=== PATIENT | female | born 1990 | race Caucasian/White ===

== ENCOUNTER 2023-02-16 14:23 | Inpatient (IN) | payer BC ==
[~2023-02-16] VITALS: Ht 165.1 cm; Wt 92.3 kg
[~2023-02-16 14:23] MED LIST: MOTRIN 600600 MG/TAB PO; PERCOCET 325 MG1 TA2 PO; PRENATAL1 TA1 PO
[2023-02-18] VITALS (29 sets, daily range): BP systolic 121–160; BP diastolic 73–101; PULSE 68–126; TEMP 98.1–98.2
--- NOTE | 2023-02-18 06:15 | NUR ---
PT AMBULATORY TO UNIT WITH SIGNIFICANT OTHER, ORIENTED TO ROOM AND PLAN OF CARE. PT REPORTS FEELING IRREGULAR CTX "NOT WITHIN THE LAST DAY", NO LOF, NO VAGINAL BLEEDING/SPOTTING, AND POSITIVE MOVEMENT. REPORTS BEING SLIGHTLY ANXIOUS DUE TO HER LAST DELIVERY. PT VS STABLE, EFM CAT 1.
[2023-02-18] MEDS ORDERED: PRENATAL TABLET PO (06:37)
[2023-02-18 07:45] LABS: BASO % 0.3 % (0.0-2.0); EOS % 0.4 % (0.0-4.0); GRAN # 4.7 K/mm3 (1.4-6.5); GRAN % 65.8 % (42.2-75.2); HEMATOCRIT 37.8 % (37.0-47.0); HEMOGLOBIN 13.3 g/dl (12.5-16.0); LYMPH # 1.8 K/mm3 (1.2-3.4); LYMPH % 25.1 % (20.0-51.0); MEAN CELL VOLUME 88 fl (80.0-100.0); MEAN CORPUSCULAR HEMOGLOBIN 31 pg (27-31); MEAN CORPUSCULAR HGB CONC 35 g/dl (33.0-37.0); MEAN PLATELET VOLUME 11.1 fl (7.4-10.4); MONO # 0.6 K/mm3 (0.1-0.6); MONO % 8.1 % (1.7-9.3); PLATELET COUNT 172 K/mm3 (130-400); RED BLOOD COUNT 4.31 M/mm3 (4.10-5.30); REDCELL DISTRIBUTION WIDTH-CV 12.2 % (11.5-14.5)
--- NOTE | 2023-02-18 09:17 | NUR ---
0910 BAIRON ALEJANDRE AT BEDSIDE. PT SITTING UPRIGHT, PULSE OX IN PLACE, FLUID BOLUS INFUSING, EFM TRACING CAT 1. 0917 TEST DOSE PER [place], PT TOLERATED WELL. VS STABLE, EFM CAT 1. PT RETURNED TO LL POSITION, TOLERATED WELL.
--- NOTE | 2023-02-18 12:20 | NUR ---
1155 SVE 10/100/+2 PER PCR.MANSHE. PT REPORTS FEELING LOWER PRESSURE WITH CTX, SMALL BLOODY SHOW. [address] FRAIRE 1210 DR. FRAIRE AT BEDSIDE. ROOM SET FOR DELIVERY. PT FEELING URGE TO PUSH. 1220 OF VIABLE MALE INFANT PER DR. FRAIRE. PLACED ON MATERNAL ABDOMEN, CARE ASSUMED BY NURSERY RN. [address] FRAIRE. LOCHIA WNL, FUNDUS FIRM AT THE U, PT VS STABLE. DR. FRAIRE BEGINS REPARE OF 2ND DEGREE LACERATION, PT TOLERATING WELL. PITOCIN BOLUS INFUSING PER PROTOCOL. 1230 ROOM PUT BACK TOGETHER, PT COMFORTABLE IN BED, VS STABLE, FUNDUS FIRM, LOCHIA WNL.
[2023-02-19 01:01] VITALS: BP 126/94; PULSE 79; TEMP 98
[2023-02-19 04:04] VITALS: BP 152/88; PULSE 78; TEMP 97.8
[2023-02-19 05:51] LABS: HEMOGLOBIN 11.9 g/dl (12.5-16.0)
[2023-02-19 08:00] VITALS: BP 132/97; PULSE 90; TEMP 97.9
--- NOTE | 2023-02-19 09:14 | NUR ---
Initial visit; Patient thanked Lead Business Analyst for offering Congratulations and God's blessings for the of her son. Lead Business Analyst thanked patient for choosing [facility].
[2023-02-19 11:55] VITALS: BP 145/100; PULSE 88; TEMP 98.9
[2023-02-19 13:22] VITALS: BP 143/94; PULSE 92; TEMP 98
--- NOTE | 2023-02-19 15:25 | NUR ---
ALL DC PAPERWORK REVIEWED AND UNDERSTOOD INCLUDING FOLLOW UP APPOINTMENTS. PT DENIES FURTHER QUESTIONS OR CONCERNS. PLACED SAFELY IN CAR SEAT, STRAPS ASSESSED BY THIS RN. PT AND SPOUSE AMBULATORY FROM UNIT IN STABLE CONTIION WITH ALL BELONGINGS ACCOUNTED FOR.
== END 2023-02-19 15:25 | disposition home or self-care (01) | DRG 807 ==
LOC: LDR 02-18 06:03 → OB 02-18 06:03
PROVIDERS: ADMIT Obstetrics & Gynecology
PROC: 10E0XZZ Delivery of Products of Conception, External Approach (ICD-10-PCS; principal; 2023-02-18)
PROC: 0KQM0ZZ Repair Perineum Muscle, Open Approach (ICD-10-PCS; 2023-02-18)
PROC: 10907ZC Drainage of Amniotic Fluid, Therapeutic from Products of Conception, Via Natural or Artificial Opening (ICD-10-PCS; 2023-02-18)
PROC: 3E033VJ Introduction of Other Hormone into Peripheral Vein, Percutaneous Approach (ICD-10-PCS; 2023-02-18)
DX: O48.0 Post-term pregnancy (principal); Z37.0 Single live birth; O13.4 Gestational [pregnancy-induced] hypertension without significant proteinuria, complicating childbirth; Z3A.40 40 weeks gestation of pregnancy; O70.1 Second degree perineal laceration during delivery; Z23 Encounter for immunization
CPT/HCPCS: J2405; J2590; J2795; J7120